=== PATIENT | male | born 1985 | race Caucasian/White ===

== ENCOUNTER 2020-02-19 09:08 | Day surgery (SDC) | payer OTHER, SELFPAY ==
[~2020-02-19] VITALS: Ht 167.6 cm; Wt 72.6 kg
[2020-02-19] MEDS ORDERED: fentaNYL citrate 0.05 MG/ML VIAL ONE (11:47)
[2020-02-19] MEDS ORDERED: MIDAZOLAM 2 MG/2 ML VIAL ONE ×2 (11:47)
[2020-02-19] MEDS ORDERED: MIDAZOLAM 2 MG/2 ML VIAL IVP ONE (13:50)
== END 2020-02-19 12:40 | disposition home or self-care (01) ==
LOC: MOR 09:08 → MFCC 11:03 → MOR 12:40
PROVIDERS: ATTEND Internal Medicine Gastroenterology
DX: K21.9 Gastro-esophageal reflux disease without esophagitis (principal); K59.00 Constipation, unspecified; Z88.0 Allergy status to penicillin; Z88.1 Allergy status to other antibiotic agents; Z20.828 Contact with and (suspected) exposure to other viral communicable diseases
CPT/HCPCS: 43235; J2250; U0003; J3010